=== PATIENT | female | born 1950 | race Caucasian/White ===

== ENCOUNTER → 2017-10-22 | Outpatient (CLI) | payer OTHER ==
--- NOTE | 2017-10-23 09:55 | RADIOLOGY IMAGING REPORT ---
FACILITY: [facility] PATIENT NAME: JULIANNA TERAN : [id number] MR: [id number] V: [id number] EXAM DATE: ORDERING PHYSICIAN: DEIDRA CORREA TECHNOLOGIST: Brittanie Thurston PROCEDURE:BILATERAL DIGITAL SCREENING MAMMOGRAM WITH CAD ASSISTED INTERPRETATION AND 3D BREAST TOMOSYNTHESIS. COMPARISON:Prior mammograms dated 06/30/14 and 05/13/11, INDICATIONS:SCREENING FINDINGS: There is predominant fatty replacement throughout the breasts. The parenchymal pattern has remained stable when allowing for difference in mammographic technique and patient positioning. There is no evidence of malignant appearing mass, malignant appearing calcification or other secondary sign of malignancy in either breast. DIAGNOSTIC CATEGORY 1--NEGATIVE. RECOMMENDATIONS: ROUTINE MAMMOGRAM AND CLINICAL EVALUATION. IMPRESSION: Bi-RADS 1: No significant abnormality is seen. Images were reviewed with R2CAD and 3D breast tomosynthesis. Dictated by: Myrna Perez M.D. on 10/22/2017 at 16:24 Transcribed by: NATALIE on 10/22/2017 at 20:22 Approved by: Myrna Perez M.D. on 10/23/2017 at 9:53 [facility]
== END ==
LOC: LAB 02:44
PROVIDERS: ATTEND Obstetrics & Gynecology
DX: Z12.31 Encounter for screening mammogram for malignant neoplasm of breast (principal)
CPT/HCPCS: 77063; 77067